=== PATIENT | male | born 1985 | race American Indian/Alaskan Native ===

== ENCOUNTER 2017-06-14 16:13 | Emergency (ER) | payer OTHER ==
[2017-06-14 16:32] VITALS: BMI 32.8
[2017-06-14 16:35] VITALS: BP 129/81; RESP 18
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
[2017-06-14 19:48] VITALS: PULSE 83; TEMP 98; O2SAT 99
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
== END 2017-06-14 19:49 | disposition home or self-care (01) ==
LOC: MERGE 16:13 → ED 16:13
DX: S90.31XA Contusion of right foot, initial encounter (principal); V09.9XXA Pedestrian injured in unspecified transport accident, initial encounter; Y92.410 Unspecified street and highway as the place of occurrence of the external cause

== ENCOUNTER 2017-12-23 12:19 | Emergency (ER) | payer SELFPAY ==
[2017-12-23 12:27] VITALS: RESP 18; TEMP 98.2
[2017-12-23 12:28] VITALS: BMI 31.0
--- NOTE | 2017-12-23 13:21 | ED PDOC ---
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 Pt. has been rubbing and touching the left eye, feels foreign body sensation and tearing , no headache or night sweat, no numbness or tingling, no vision changes, no eye surgery but admits wears contacts. Symptom Onset: Sudden Symptom Course: Unchanged Activities at Onset: Light Context: Work Past Medical History - Provider Review Nursing Documentation Reviewed: Yes - Infectious Disease Hx of Infectious Diseases: None - Tetanus Immunization Tetanus Immunization: Unknown - Psychiatric Hx Substance Use: No - Surgical History Hx Gastric Bypass Surgery: Yes Other/Comment: gastric sleeve - Anesthesia Hx Anesthesia: Yes Hx Anesthesia Reactions: No Hx Malignant Hyperthermia: No Family/Social History - Physician Review Nursing Documentation Reviewed: Yes Family/Social History: Unknown Family HX Smoking Status: Current Some Days Smoker Hx Alcohol Use: Yes Hx Substance Use: No Allergies/Home Meds Allergies/Adverse Reactions: Allergies No Known Allergies Allergy (Verified 12/23/17 12:38) Review of Systems - Physician Review All systems were reviewed & negative as marked: Yes - Review of Systems Constitutional: absent: Fatigue, Fevers Eyes: Other (foreign body eye sensation and tearing ). absent: Vision Changes ( Left eye foreign body sensation and tearing ) ENT: absent: Hearing Changes Respiratory: absent: SOB, Cough Cardiovascular: absent: Chest Pain Gastrointestinal: absent: Abdominal Pain, Diarrhea, Vomiting Musculoskeletal: absent: Arthralgias, Back Pain Skin: absent: Rash, Pruritis Neurological: absent: Headache, Dizziness Hemo/Lymphatic: absent: Adenopathy, Easy Bleeding Psychiatric: absent: Anxiety, Depression Physical Exam Vital Signs Reviewed: Yes Vital Signs Temp Pulse Resp BP Pulse Ox 12/23/17 14:09 62 18 138/76 98 12/23/17 12:26 98.2 F 60 18 159/88 H 99 Temperature: Afebrile Blood Pressure: Hypertensive Pulse: Regular Respiratory Rate: Normal Appearance: Positive for: Well-Appearing, Non-Toxic, Comfortable Pain Distress: None Mental Status: Positive for: Alert and Oriented X 3 - Systems Exam Head: Present: Atraumatic, Normocephalic Pupils: Present: PERRL, Other (Eyes: rt. eye w/o correction 20/70 vs. lt. eye w/ o correction 20/100 vs. bilateral vision 20/100 w/o correction, +left conjunctivitis with visible 3 tiny dotss less than 0.1cm diameter fluorsein uptake noted with negative lucy signs and no cornea laceration, no dendritic lesion on the left eye, FREOM without limitation, bilaterl upper and lower eyelids everted with no visible foreign bodies. ) Extroacular Muscles: Present: EOMI Conjunctiva: Present: Other (+left eye conjunctivitis). No: Normal Mouth: Present: Moist Mucous Membranes Neck: Present: Normal Range of Motion Respiratory/Chest: Present: Clear to Auscultation, Good Air Exchange. No: Respiratory Distress, Accessory Muscle Use Cardiovascular: Present: Regular Rate and Rhythm, Normal S1, S2. No: Murmurs Abdomen: No: Tenderness, Distention, Peritoneal Signs Back: Present: Normal Inspection Upper Extremity: Present: Normal Inspection. No: Cyanosis, Edema Lower Extremity: Present: Normal Inspection. No: Edema Neurological: Present: GCS=15, CN II-XII Intact, Speech Normal, Motor Func Grossly Intact, Normal Cerebellar Funct, Gait Normal, Memory Normal Skin: Present: Warm, Dry, Normal Color. No: Rashes Psychiatric: Present: Alert, Oriented x 3, Normal Insight, Normal Concentration Medical Decision Making ED Course and Treatment: 12/23/17 12:50 -Ciloxin -Opthalmologist paged 12/23/17 14:03 -I spoke to Dr. Sloan, opthalmologist cargo operations agent, discussed about the case, agreed on the treatment, recommend to discharge him and tell him to come to the office now, pt. agreed to go to see dr. sloan now. -Discharge home with ciloxin, avoid wearing contacts, avoid touching the eye, follow up with the opthalmologist Dr. Sloan for full eye examination and follow up today, follow up with your own pmd within 2 days, return to the ER for any new or worsening signs or symptoms. - Medication Orders Current Medication Orders: Discontinued Medications Ciprofloxacin (Ciloxan 0.3% Ophth Soln) 2 drop OS STAT STA Stop: 12/23/17 13:32 Last Admin: 12/23/17 14:08 Dose: 2 drop - PA / APPAREL MACHINERY INSTRUCTOR / Resident Statement MD/DO has reviewed & agrees with the documentation as recorded. - Scribe Statement The provider has reviewed the documentation as recorded by the Scribe [place] Provider Scribe Attestation: All medical record entries made by the Scribe were at my direction and personally dictated by me. I have reviewed the chart and agree that the record accurately reflects my personal performance of the history, physical exam, medical decision making, and the department course for this patient. I have also personally directed, reviewed, and agree with the discharge instructions and disposition. Disposition/Present on Arrival - Present on Arrival Any Indicators Present on Arrival: No History of DVT/PE: No History of Uncontrolled Diabetes: No Urinary Catheter: No History of Decub. Ulcer: No History Surgical Site Infection Following: None - Disposition Have Diagnosis and Disposition been Completed?: Yes Diagnosis: Corneal abrasion, Conjunctivitis Disposition: HOME/ ROUTINE Disposition Time: 13:53 Patient Plan: Discharge Condition: GOOD Additional Instructions: -Discharge home with ciloxin, avoid wearing contacts, avoid touching the eye, follow up with the opthalmologist Dr. Sloan for full eye examination and follow up today, follow up with your own pmd within 2 days, return to the ER for any new or worsening signs or symptoms. Prescriptions: Ciprofloxacin 0.3% [Ciloxan 0.3% Ophth SOLN] 2 drop OS Q4 #1 bottle Referrals: Franklyn Sloan MD [Staff Provider] - Follow up with primary Forms: [employer] (Hebrew), WORK NOTE
[2017-12-23] MEDS ORDERED: Ciprofloxacin 0.3% OPTH SOLN OS STA (13:31)
[2017-12-23 14:09] VITALS: BP 138/76; PULSE 62; O2SAT 98
== END 2017-12-23 14:11 | disposition home or self-care (01) ==
LOC: ED 12:19
DX: H10.9 Unspecified conjunctivitis (principal); S05.02XA Injury of conjunctiva and corneal abrasion without foreign body, left eye, initial encounter; X58.XXXA Exposure to other specified factors, initial encounter

== ENCOUNTER 2018-07-17 18:52 | Emergency (ER) | payer SELFPAY ==
[2018-07-17 18:52] VITALS: BMI 31.0
[2018-07-17 19:02] VITALS: BP 121/85; PULSE 82; RESP 18; TEMP 97.9; O2SAT 99
== END 2018-07-17 19:22 | disposition left against medical advice (07) ==
LOC: ED 18:52
DX: Z02.89 Encounter for other administrative examinations (principal); F19.10 Other psychoactive substance abuse, uncomplicated